=== PATIENT | female | born 1995 | race Hispanic/Latino ===

== ENCOUNTER 2020-06-14 16:52 | Emergency (ER) | payer OTHER ==
[2020-06-14 17:34] LABS: Pregnancy Test - Urine (BHCG) Negative (Negative); Pregu Control Background? CLEAR/WHITE (CLR/WHITE); Pregu Control Bar Appear? YES (CONTROL BAR)
== END 2020-06-14 18:48 | disposition home or self-care (01) ==
LOC: CSHERS 16:52
DX: R55 Syncope and collapse (principal)
CPT/HCPCS: 81025; 93005